=== PATIENT | male | born 1990 | race Two or more races ===

== ENCOUNTER 2019-05-18 11:39 | Emergency (ER) | payer SELFPAY ==
[2019-05-18 11:48] VITALS: BP 114/64; PULSE 74; TEMP 99.2; BMI 27.4
--- NOTE | 2019-05-18 11:51 | PDOC ---
History of Present Illness - General Chief Complaint: Rash Stated Complaint: BODY RASH Time Seen by Provider: 05/18/19 11:47 History Source: Patient - History of Present Illness Initial Comments: 05/18/19 12:32 Chief complaint: Rash Is a healthy 28-year-old male who has itchy rash below the umbilicus, very localized. He has had this for a week. Never had it before. No other complaints. No medical problems. GENERAL/CONSTITUTIONAL: No fever, weakness. dizziness HEAD, EYES, EARS, NOSE AND THROAT: No change in vision. No ear pain or discharge. No sore throat. CARDIOVASCULAR: No chest pain RESPIRATORY: No shortness of breath or cough GASTROINTESTINAL: No pain, nausea, vomiting, diarrhea or constipation GENITOURINARY: No dysuria MUSCULOSKELETAL: No neck or back pain SKIN: +rash NEUROLOGIC: No headache, vertigo, loss of consciousness, or loss of sensation. GENERAL: The patient is awake, alert, and fully oriented, in no acute distress. HEAD: Normal with no signs of trauma. EYES: Pupils equal, round and reactive to light, sclera anicteric, conjunctiva clear. ENT: pharynx: no erythema, no exudate, uvula midline NECK: supple CHEST: clear, nontender, rr ABD: soft, nontender, centimeter by 3 cm mildly scaly, reddened area, no signs of infection. Area presentation is consistent with contact dermatitis. BACK: no tenderness or signs of injury EXTREMITIES: Normal range of motion, no edema. NEUROLOGICAL: Normal speech, normal gait. SKIN: Warm, Dry Past History - Past Medical History Allergies/Adverse Reactions: Allergies Allergy/AdvReac Type Severity Reaction Status Date / Time No Known Allergies Allergy Verified 05/18/19 11:45 Home Medications: Ambulatory Orders Betamethasone/Propylene Glyc [Betamethasone Dp Aug 0.05% Oin] 15 gm TP BID #1 oint...g. 05/18/19 COPD: No Thyroid Disease: No - Immunization History Immunization Up to Date: Yes - Suicide/Smoking/Psychosocial Hx Smoking History: Never smoked Hx Alcohol Use: Yes (SOCIAL) Drug/Substance Use Hx: No *Physical Exam - Vital Signs Last Vital Signs Temp Pulse Resp BP Pulse Ox 99.2 F 74 16 114/64 98 05/18/19 11:45 05/18/19 11:45 05/18/19 11:45 05/18/19 11:45 05/18/19 11:45 Medical Decision Making - Medical Decision Making 05/18/19 12:34 Healthy 28-year-old male with 1 week of rash to the mid lower abdomen, very localized, appearance is consistent with contact dermatitis. Discussed with patient he should figure out what's rubbing to the area and he was given a prescription for mid potency steroid he can use for up to 2 weeks. Return instructions and also given the name of a drift miner he can follow-up with Discussed issues, findings, results, applicable medications and treatments and follow-up. All these were understood and all questions were answered *DC/Admit/Observation/Transfer Diagnosis at time of Disposition: Contact dermatitis Qualifiers: Contact dermatitis type: unspecified Contact dermatitis trigger: unspecified trigger Qualified Code(s): L25.9 - Unspecified contact dermatitis, unspecified cause - Discharge Dispostion Disposition: HOME Condition at time of disposition: Stable - Prescriptions Prescriptions: Betamethasone/Propylene Glyc [Betamethasone Dp Aug 0.05% Oin] 15 gm TP BID #1 oint...g. - Referrals Referrals: Juany Gutiérrez MD [Staff Physician] - - Patient Instructions Printed Discharge Instructions: Contact Dermatitis Additional Instructions: You are having a reaction to something rubbing in the area of your abdomen that has the rash. Try to figure out what's rubbing in that area. Use the hydrocortisone cream as directed for a maximum of 2 weeks Return to the ER if fever, pus, getting hot or getting much worse Otherwise if does not go away, follow-up with the drift miner Est teniendo alize reaccin a algo que se frota en el shreyas de hurtado abdomen que tiene la erupcin. Intenta descubrir qu es lo que est rozando en yariel shreyas. Use la crema de hidrocortisona zhao se indica barbie un mximo de 2 semanas. Regrese a la hoang de emergencias si tiene fiebre, pus, calor o empeora mucho De lo contrario, si no desaparece, michelle un seguimiento con el dermatlogo. - Post Discharge Activity
== END 2019-05-18 12:13 | disposition home or self-care (01) ==
LOC: JERFT 11:39
DX: R21 Rash and other nonspecific skin eruption (principal)
CPT/HCPCS: 99281-25